=== PATIENT | male | born 1965 | race Caucasian/White ===

== ENCOUNTER 2016-10-24 11:21 | Emergency (ER) | payer SELFPAY ==
[2016-10-24] MEDS ORDERED: MORPHINE SULFATE 2 MG/ML DISP.SYRIN ONE (12:34)
[2016-10-24] MEDS ORDERED: SILVER SULFADIAZINE 50 APPL JAR TP ONE (12:34)
[2016-10-24] MEDS: SILVER SULFADIAZINE 50 APPL JAR TP ONE (12:37)
--- NOTE | 2016-10-24 12:37 | ERNOTE ---
ER Burn HPI Date of Service: 10/24/16 Stated Complaint: FOFANA Time Seen by Provider: 10/24/16 12:07 Source: patient Exam Limitations: no limitations Immunizations: IMMUNIZATION HX Immunizations Up to Date Yes Allergies/Adverse Reactions: Allergies aspirin Allergy (Verified 10/24/16 11:37) Home Medications: HOME MEDICATIONS Silver Sulfadiazine [Silvadene] 1 appl TP BID #1 jar 10/24/16 [Last Taken Unknown] oxyCODONE HCL/ACETAMINOPHEN [Percocet 5 MG/325 MG] 1 tab PO Q4H PRN #20 tab [Last Taken Unknown] - History of Present Illness Narrative: Pt. comes in with c/o fofana from mixing mortar yesterday when his gloves failed and were worn through. Pt. denies any SOB, CP, NVD, fever, recent illness. Pt. states that he washed his fofana with shower gel and then applied lotion. Pt. states taht this seems to aggravate the symptoms. Review of Systems - Review of Systems Constitutional: Present: no symptoms reported. Absent: recent illness, fever, chills, weakness, fatigue EYE: Present: no symptoms reported ENT: Present: no symptoms reported Respiratory: Present: no symptoms reported. Absent: shortness of breath, cough , wheezing Cardiology: Present: no symptoms reported Gastrointestinal/Abdominal: Present: no symptoms reported. Absent: nausea, vomiting, diarrhea, abdominal pain Genitourinary: Present: no symptoms reported Musculoskeletal: Present: no symptoms reported Skin: Present: other - second degree fofana 12 less than 1 cm in diameter all partial thickness with blistered appearance. Neurological: Present: no symptoms reported. Absent: headache, dizziness/light- headedness, numbness, tingling All Other Systems: All systems neg except as marked - Patient's Past Medical History Patient History - Medical: Headache Patient History - Cardiac/Respiratory: No pertinent hx Patient History - Cancer: No Hx of Cancer Patient History - Surgical Procedures: Appendectomy Patient History - Other: None - Social History Living Situations: home Psych History: No pertinent hx Smoking Status: Current every day smoker Alcohol Use: none Drug Use: none - Immunizations Immunizations Up to Date: Yes Physical Exam - Physical Exam General Appearance: Present: wd/wn, alert, no apparent distress Head Exam: Present: normal inspection, no evidence of injury Eye Exam: Normal inspection: bilateral, PERRL: bilateral, EOMI: bilateral Ears, Nose, Throat: Present: normal ENT inspection, normal pharynx Neck: Present: normal inspection, nontender. Absent: lymphadenopathy (R), lymphadenopathy (L) Respiratory: Present: no respiratory distress, normal breath sounds, no accessory muscle use, chest nontender, lungs clear Cardiovascular/Chest: Present: regular rate, rhythm, no murmur, normal peripheral pulses Back Exam: Present: normal inspection Extremity Exam: Present: other - B hands second degree fofana 12 less than 1 cm in diameter all partial thickness with blistered appearance. No decreased ROM Neurological Exam: Present: alert, oriented, normal mood/affect, no motor/ sensory deficits Skin Exam: Present: normal color, warm/dry, other - second degree fofana 12 less than 1 cm in diameter all partial thickness with blistered appearance. ED Progress - Date and Time Seen: Date and Time: 10/24/16 12:22 Washed hands with ph balanced soap and and applied silvadene cream and as fofana are all second degree less than 1cm each and not circumfrencial or over a joint feel that pt. does not need referral to burn center at this time. Will have pt. follow up with [facility] as pt. does not have PCP. - Vital Signs Patient's Vital Signs:: I have reviewed the patient's vital signs. Vital Signs: Vital Signs 10/24/16 11:30 Temperature 36.5 C Pulse Rate 86 Respiratory 12 Rate Blood Pressure 138/75 O2 Sat by Pulse 98 Oximetry - Progress/Reassessment Chief Complaint: Fofana Departure Clinical Impression: Chemical fofana involving 10-19% of body surface with 0% to 9% full thickness chemical fofana - Departure Disposition: Home self-care Condition: Good Instructions: Chemical Burn, [id number] Additional Instructions: Please follow up with occupational health clinic or urgent care in 3-4 days for wound check change dressing twice a day. Prescriptions: oxyCODONE HCL/ACETAMINOPHEN [Percocet 5 MG/325 MG] 1 tab PO Q4H PRN #20 tab PRN Reason: Pain Silver Sulfadiazine [Silvadene] 1 appl TP BID #1 jar
[2016-10-24 12:38] VITALS: BP 119/81
[2016-10-24] MEDS: MORPHINE SULFATE 4 MG/ML SYRG IM ONE (12:38)
== END 2016-10-24 13:32 | disposition home or self-care (01) ==
LOC: ER 11:21
DX: T23.202A Burn of second degree of left hand, unspecified site, initial encounter (principal); T23.201A Burn of second degree of right hand, unspecified site, initial encounter; T31.10 Burns involving 10-19% of body surface with 0% to 9% third degree burns; T65.891A Toxic effect of other specified substances, accidental (unintentional), initial encounter; Y93.89 Activity, other specified; Y92.63 Factory as the place of occurrence of the external cause; Y99.0 Civilian activity done for income or pay; F17.200 Nicotine dependence, unspecified, uncomplicated